=== PATIENT | male | born 1955 | race Caucasian/White ===

== ENCOUNTER → 2017-05-05 | Outpatient (CLI) | payer BC ==
--- NOTE | 2017-05-05 11:17 | PCVCIMAG ---
APPROVED REPORT Study performed: 05/05/2017 10:07:01 EXAM: Comprehensive 2D, Doppler, and color-flow Echocardiogram Patient Location: Echo lab Room #: 3Status: routine BSA: 2.08 HR: 56 bpmBP: 118/66 mmHg Rhythm: NSR Other Information Study Quality: Good Risk Factors: Cardiac Risk Factors: Hyperlipidemia, HTN Indications CAD Cardiomyopathy Hypertension/HDD Hx SD,Stents 2D Dimensions LVEF(%): 59.60 (>50%) IVSd: 10.25 (7-11mm)LVOT Diam: 21.54 (18-24mm) LVDd: 53.32 mm PWd: 9.93 (7-11mm)Ascending Ao: 35.52 (22-36mm) LVDs: 36.27 (25-40mm) Left Atrium: 46.23 (27-40mm) Aortic Root: 27.30 mm LV Single Plane 4CH: 54.90 % LV Single Plane 2CH: 62.80 %Del Castillo's LVEF: 58.85 % Biplane EF: 61.9 % Volumes Left Atrial Volume (Systole) Single Plane 4CH: 62.69 mLSingle Plane 2CH: 84.83 mL Biplane LA Volume: 77.00 mLLA ESV Index: 37.00 mL/m2 Aortic Valve AoV Peak Lonny.: 1.36 m/s AO Peak Gr.: 7.37 mmHg Mitral Valve E/A Ratio: 1.5 MV Decel. Time: 191.01 ms MV E Max Lonny.: 0.84 m/s MV A Lonny.: 0.56 m/s MV PHT: 55.39 ms IVRT: 121.11 ms TDI E/Lateral E': 5.25E/Medial E': 10.50 Medial E' Lonny.: 0.08 m/s Lateral E' Lonny.: 0.16 m/s Pulmonary Valve PV Peak Lonny.: 1.06 m/sPV Peak Gr.: 4.47 mmHg Pulmonary Vein P Vein S: 0.35 m/sP Vein A: 0.39 m/s P Vein D: 0.40 m/sP Vein A Dur.: 86.5 msec P Vein S/D Ratio: 0.88 Tricuspid Valve TR Peak Lonny.: 2.46 m/s TR Peak Gr.: 24.28 mmHg TV Vmax: 0.93 m/sPA Pressure: 31.00 mmHg Left Ventricle The left ventricle is normal size. Mild inferior hypokinesis. There is normal left ventricular wall thickness. Left ventricular systolic function is borderline. LVEF is 50%. The left ventricular diastolic function is normal. Right Ventricle The right ventricle is normal size. The right ventricular systolic function is normal. Atria Left atrium is mildly dilated. The right atrium size is normal. Aortic Valve The aortic valve is normal in structure. No aortic regurgitation is present. There is no aortic valvular stenosis. Mitral Valve The mitral valve is normal in structure. Mild mitral regurgitation. No evidence of mitral valve stenosis. Tricuspid Valve The tricuspid valve is normal in structure. Mild tricuspid regurgitation with a PA pressure of 31 mmHg. Pulmonic Valve The pulmonary valve is normal in structure. Mild pulmonic regurgitation. Great Vessels The aortic root is normal in size. IVC is normal in size and collapses with >50% inspiration Pericardium There is no pericardial effusion. There is no pleural effusion. <Conclusion> The left ventricle is normal size. The LV systolic function is borderline lownormal. There is mild hypokinesis of the inferior segment. The right ventricle is normal size. Left atrium is mildly dilated. The aortic valve is normal in structure. Mild mitral regurgitation. Mild tricuspid regurgitation with a PA pressure of 31 mmHg.
== END | disposition home or self-care (01) ==
LOC: PCVCIMAG 09:52
PROVIDERS: ATTEND Internal Medicine Cardiovascular Disease
DX: I25.10 Atherosclerotic heart disease of native coronary artery without angina pectoris (principal); I10 Essential (primary) hypertension; I42.9 Cardiomyopathy, unspecified; E78.5 Hyperlipidemia, unspecified; I25.2 Old myocardial infarction; Z79.82 Long term (current) use of aspirin; Z79.899 Other long term (current) drug therapy
CPT/HCPCS: 93005; 93306; G0463